=== PATIENT | female | born 1955 | race Caucasian/White ===

== ENCOUNTER 2019-02-08 08:23 | Day surgery (SDC) | payer MEDICARE, OTHER ==
[~2019-02-08] VITALS: Ht 162.6 cm; Wt 75.2 kg
[~2019-02-08 08:23] MED LIST: Alph-E-Mixed400 UNIT PO; B Complex #11 EACH PO; BIOTIN5000 MC1 SL; CARB100ER PO; CARB200; CARB200ER PO; CYCL10 PO; Cyclobenzaprine5 MG PO; DOXY100 PO; FAMO20 PO; HYDGUAL120 PO; LEVFLO500 PO; LEVSOD150 PO; LEVSOD50; LEVSOD75 PO; Mirapex1 MG PO; OXYC10ER PO; OXYC20ER; OXYC5; OXYC5 PO; PRAM.125 PO; PROBIOTIC 4X C1 EACH PO; SENN187 PO; SIME80CH PO; VENL75; VENL75ER PO; VOLTAREN100 GM TOP; Vitamin D2000 UNIT PO
[2019-02-08] MEDS ORDERED: PRED5 (09:00)
[2019-02-08] MEDS ORDERED: DICL25ER (09:00)
--- NOTE | 2019-02-08 09:05 | NUR ---
02/08/19 0905 Brenton Thomas 1ST IV ATTEMPT IN RIGHT HAND VEIN BLEW-CMT
== END 2019-02-08 11:10 | disposition home or self-care (01) ==
LOC: ORSCSDS 08:23
PROVIDERS: Internal Medicine Gastroenterology
PROC: 0DBP8ZX Excision of Rectum, Via Natural or Artificial Opening Endoscopic, Diagnostic (ICD-10-PCS; principal; 2019-02-08 09:30)
PROC: 3E0H8GC Introduction of Other Therapeutic Substance into Lower GI, Via Natural or Artificial Opening Endoscopic (ICD-10-PCS; principal; 2019-02-08 09:30)
PROC: 0DBM8ZX Excision of Descending Colon, Via Natural or Artificial Opening Endoscopic, Diagnostic (ICD-10-PCS; principal; 2019-02-08 09:30)
PROC: 0DBK8ZX Excision of Ascending Colon, Via Natural or Artificial Opening Endoscopic, Diagnostic (ICD-10-PCS; principal; 2019-02-08 09:30)
DX: Z12.11 Encounter for screening for malignant neoplasm of colon (principal); Z86.010 Personal history of colon polyps; Z80.0 Family history of malignant neoplasm of digestive organs; C18.2 Malignant neoplasm of ascending colon; D12.4 Benign neoplasm of descending colon; D12.8 Benign neoplasm of rectum; K63.5 Polyp of colon; K57.30 Diverticulosis of large intestine without perforation or abscess without bleeding; F17.210 Nicotine dependence, cigarettes, uncomplicated
CPT/HCPCS: 88305; J2704; J7120

== ENCOUNTER 2020-02-21 11:55 | Day surgery (SDC) | payer MEDICARE, OTHER ==
[~2020-02-21] VITALS: Ht 162.6 cm; Wt 72.4 kg
[~2020-02-21 11:55] MED LIST changes: +DICL25ER; +PRED5
--- NOTE | 2020-02-21 14:22 | NUR ---
02/21/20 1422 YOSELYN MENESES PATIENT TO STEP DOWN RECOVERY FOR EXTENDED RECOVERY. RECEIVED REPORT FROM [facility]. PATIENT UNDERWENT COLONOSCOPY AND IS NOW COMPLAINING OF ABDOMINAL PAIN POST PROCEDURE. PER DR. CORONEL PATIENT TO BE MONITORED FOR THIRTY MINUTES IN EXT RECOVERY. VSS. PATIENT REPORT IMPROVEMENT UPON ARRIVAL TO STEP DOWN. AT BEDSIDE. TOLERATING ICE CHIPS AT THIS TIME. LEISA MONTENEGRO, ENGAGED IN DISCHARGE TEACHING WITH PATIENT.
== END 2020-02-21 14:52 | disposition home or self-care (01) ==
LOC: ORSCSDS 11:55
PROVIDERS: Internal Medicine Gastroenterology
PROC: 0DBM8ZX Excision of Descending Colon, Via Natural or Artificial Opening Endoscopic, Diagnostic (ICD-10-PCS; principal; 2020-02-21 13:15)
PROC: 0DBN8ZX Excision of Sigmoid Colon, Via Natural or Artificial Opening Endoscopic, Diagnostic (ICD-10-PCS; principal; 2020-02-21 13:15)
PROC: 0DBK8ZX Excision of Ascending Colon, Via Natural or Artificial Opening Endoscopic, Diagnostic (ICD-10-PCS; principal; 2020-02-21 13:15)
DX: Z85.038 Personal history of other malignant neoplasm of large intestine (principal); Z86.010 Personal history of colon polyps; Z80.0 Family history of malignant neoplasm of digestive organs; K63.5 Polyp of colon; F17.210 Nicotine dependence, cigarettes, uncomplicated; Z79.899 Other long term (current) drug therapy
CPT/HCPCS: 88305; J2704; J7120

== ENCOUNTER → 2020-10-18 | Outpatient (CLI) | payer MEDICARE, OTHER ==
[2020-10-18 16:38] LABS: BASOPHILS ABSOLUTE AUTO 0.08 K/mm3 (0.00-0.23); BASOPHILS PERCENT AUTO 1 % (0-2); EOSINOPHILS ABSOLUTE AUTO 0.25 K/mm3 (0.00-0.68); EOSINOPHILS PERCENT AUTO 3 % (0-6); Hematocrit 40.6 % (33.0-51.0); Hemoglobin 13.2 g/dL (11.5-16.0); IMMATURE GRAN ABSOLUTE AUTO 0.06 K/mm3 (0.00-0.10); IMMATURE GRAN PERCENT AUTO 1 % (0-1); LYMPHOCYTES ABSOLUTE AUTO 1.54 K/mm3 (0.84-5.20); LYMPHOCYTES PERCENT AUTO 21 % (21-46); MONOCYTES ABSOLUTE AUTO 0.66 K/mm3 (0.16-1.47); MONOCYTES PERCENT AUTO 9 % (4-13); Mean Corpuscular HGB 31.4 pg (26.0-34.0); Mean Corpuscular HGB Conc 32.5 g/dL (31.5-36.5); Mean Corpuscular Volume 96 fL (80-100); Mean Platelet Volume 9.7 fL (9.1-12.4); NEUTROPHILS ABSOLUTE AUTO 4.88 K/mm3 (1.96-9.15); NEUTROPHILS PERCENT AUTO 65 % (41-73); Platelet Count 294 K/mm3 (150-400); RDW Coefficient Variation 13.1 % (11.7-14.2); Red Blood Cell Count 4.21 M/mm3 (3.80-5.20); White Blood Cell Count 7.47 K/mm3 (4.00-11.30)
[2020-10-18 16:52] LABS: Anion Gap 1 mmol/L (6-16); Blood Urea Nitrogen 12 mg/dL (8-24); Bun/Creatinine Ratio 20.2 (12.0-20.0); CO2, Blood 33 mmol/L (21-32); Carbamazepine 11.3 ug/mL (4.0-12.0); Chloride, Blood 98 mmol/L (98-108); Creatinine, Blood 0.59 mg/dL (0.40-1.00); Glomerular Filtration Rate >60 (60-); Glucose, Blood 99 mg/dL (70-99); Percent Saturation 20.7 % (15.0-50.0); Potassium, Blood 4.8 mmol/L (3.5-5.5); Sodium, Blood 132 mmol/L (136-145); Total Iron Binding Capacity 309 ug/dL (250-450)
[2020-10-18 16:57] LABS: Ferritin, Serum 125 ng/mL (8-252)
[2020-10-19 10:49] LABS: Iron Serum 63 ug/dL (50-170)
== END | disposition home or self-care (01) ==
LOC: PLD 15:12 → LAB SHORT 15:12
PROVIDERS: Registered Nurse
DX: G40.909 Epilepsy, unspecified, not intractable, without status epilepticus (principal); E61.1 Iron deficiency; E87.1 Hypo-osmolality and hyponatremia
CPT/HCPCS: 80048; 80156; 82728; 83540; 83550; 85025

== ENCOUNTER 2022-03-06 10:08 | Day surgery (SDC) | payer MEDICARE, OTHER ==
[~2022-03-06] VITALS: Ht 162.6 cm; Wt 75.7 kg
[2022-03-06] MEDS ORDERED: RANI150EL (10:51)
--- NOTE | 2022-03-06 11:12 | NUR ---
03/06/22 Zully2 JASON MORENO 2 ATTEMPTS AT IV. FIRST ATTEMPT AT IV BY MA IN L HAND IMFILTRATED. SECOND ATTEMPT BY MA IN L FOREARM SUCCESSFUL.
== END 2022-03-06 12:20 | disposition home or self-care (01) ==
LOC: ORSCSDS 10:08 → ORD 03-08 13:15 → ORSCMMR 03-08 13:15
PROVIDERS: Internal Medicine Gastroenterology
PROC: 0DBK8ZX Excision of Ascending Colon, Via Natural or Artificial Opening Endoscopic, Diagnostic (ICD-10-PCS; principal; 2022-03-06 11:15)
PROC: 0DBP8ZX Excision of Rectum, Via Natural or Artificial Opening Endoscopic, Diagnostic (ICD-10-PCS; principal; 2022-03-06 11:15)
DX: Z12.11 Encounter for screening for malignant neoplasm of colon (principal); Z85.038 Personal history of other malignant neoplasm of large intestine; D12.2 Benign neoplasm of ascending colon; K62.1 Rectal polyp; F17.210 Nicotine dependence, cigarettes, uncomplicated; Z79.899 Other long term (current) drug therapy
CPT/HCPCS: 88305; J2704; J7120

== ENCOUNTER 2022-08-01 10:07 | Day surgery (SDC) | payer MEDICARE, OTHER ==
[~2022-08-01] VITALS: Ht 162.6 cm; Wt 75.3 kg
[~2022-08-01 10:07] MED LIST changes: +RANI150EL
[2022-08-01] MEDS ORDERED: OXYB5 PO (10:44)
== END 2022-08-01 12:10 | disposition home or self-care (01) ==
LOC: ORSCSDS 10:07
PROVIDERS: Ophthalmology
PROC: 08RJ3JZ Replacement of Right Lens with Synthetic Substitute, Percutaneous Approach (ICD-10-PCS; principal; 2022-08-01 11:30)
DX: H25.11 Age-related nuclear cataract, right eye (principal); M79.7 Fibromyalgia; G40.909 Epilepsy, unspecified, not intractable, without status epilepticus; E07.9 Disorder of thyroid, unspecified; Z79.899 Other long term (current) drug therapy
CPT/HCPCS: J2001; J2250; J3010; J3301; V2632

== ENCOUNTER 2022-08-08 10:13 | Day surgery (SDC) | payer MEDICARE, OTHER ==
[~2022-08-08] VITALS: Ht 162.6 cm; Wt 75.3 kg
[~2022-08-08 10:13] MED LIST changes: +OXYB5 PO
== END 2022-08-08 12:03 | disposition home or self-care (01) ==
LOC: ORSCSDS 10:13
PROVIDERS: Ophthalmology
PROC: 08DK3ZZ Extraction of Left Lens, Percutaneous Approach (ICD-10-PCS; principal; 2022-08-08 11:30)
DX: H25.12 Age-related nuclear cataract, left eye (principal); Z96.1 Presence of intraocular lens; R56.9 Unspecified convulsions; F17.210 Nicotine dependence, cigarettes, uncomplicated; Z79.899 Other long term (current) drug therapy
CPT/HCPCS: J2001; J2250; J3010; J3301; J7040; V2632

== ENCOUNTER 2023-07-11 15:22 | Inpatient (IN) | payer MEDICARE, OTHER ==
[~2023-07-11] VITALS: Ht 162.6 cm; Wt 87.0 kg
[~2023-07-11 15:22] MED LIST changes: -OXYC5
[2023-07-11 16:10] LABS: BASOPHILS ABSOLUTE AUTO 0.08 K/mm3 (0.00-0.23); BASOPHILS PERCENT AUTO 1 % (0-2); EOSINOPHILS ABSOLUTE AUTO 0.05 K/mm3 (0.00-0.68); EOSINOPHILS PERCENT AUTO 1 % (0-6); Hematocrit 40.3 % (33.0-51.0); Hemoglobin 12.7 g/dL (11.5-16.0); IMMATURE GRAN ABSOLUTE AUTO 0.04 K/mm3 (0.00-0.10); IMMATURE GRAN PERCENT AUTO 1 % (0-1); LYMPHOCYTES ABSOLUTE AUTO 0.82 K/mm3 (0.84-5.20); LYMPHOCYTES PERCENT AUTO 10 % (21-46); MONOCYTES ABSOLUTE AUTO 0.73 K/mm3 (0.16-1.47); MONOCYTES PERCENT AUTO 9 % (4-13); Mean Corpuscular HGB 30.2 pg (26.0-34.0); Mean Corpuscular HGB Conc 31.5 g/dL (31.5-36.5); Mean Corpuscular Volume 96 fL (80-100); Mean Platelet Volume 8.8 fL (9.1-12.4); NEUTROPHILS ABSOLUTE AUTO 6.17 K/mm3 (1.96-9.15); NEUTROPHILS PERCENT AUTO 78 % (41-73); Platelet Count 349 K/mm3 (150-400); RDW Coefficient Variation 14.3 % (11.7-14.2); RDW Standard Deviation 50.2 fL (35.1-46.3); Red Blood Cell Count 4.21 M/mm3 (3.80-5.20); White Blood Cell Count 7.89 K/mm3 (4.00-11.30)
[2023-07-11 16:39] LABS: Albumin, Blood 3.4 g/dL (3.4-5.0); Albumin/Globulin Ratio 0.7 (0.8-1.8); Bilirubin, Total 0.2 mg/dL (0.1-1.0); Bun/Creatinine Ratio 16.8 (12.0-20.0); Calcium, Blood 8.5 mg/dL (8.5-10.1); Creatinine, Blood 0.6 mg/dL (0.40-1.00); Globulin, Blood 4.7 g/dL (2.2-4.0); Potassium, Blood 4.1 mmol/L (3.5-5.5); Total Protein, Blood 8.1 g/dL (6.4-8.2)
[2023-07-11 16:48] LABS: Base Excess Venous 6.9 mmol/L; Bicarbonate Venous 28.5 mmol/L (24.0-30.0); PCO2 Venous 63.7 mmHg (38-42); pH Blood Venous 7.32 (7.34-7.37)
[2023-07-11 19:39] LABS: Base Excess Venous 5.9 mmol/L; Bicarbonate Venous 28.7 mmol/L (24.0-30.0); PCO2 Venous 53.1 mmHg (38-42); pH Blood Venous 7.38 (7.34-7.37)
[2023-07-11] MEDS ORDERED: FURO20 PO (20:26)
[2023-07-11] MEDS ORDERED: POTA10T PO (20:30)
[2023-07-11 20:55] VITALS: BP 141/82
--- NOTE | 2023-07-11 21:15 | NUR ---
ADMISSION REPORT RECEIVED FROM ER NURSE. PATIENT ARRIVES TO PCU 02. MOVED OVER TO PCU BED WITH ASSISTANCE OF STAFF. PATIENT ALERT, ANSWERING ALL QUESTIONS APPROPRIATELY. ON 2L NC, SPO2 LOW 90s. PATIENT HAS SIGNIFICANT SWELLING TO UPPER FACE AND AROUND EYES AND IN BILATERAL UPPER EXTREMITIES. STATES IT HAS BEEN HAPPENING x3-4 WEEKS. AUDIBLY WHEEZING NOTED. PATIENT CYANOTIC IN FACE AND AROUND MOUTH WHEN IN SUPINE POSITION, HOB AT >30 DEGREES AT ALL TIMES. BP STABLE, TELE READING SR 90s, DENIES CHEST PAIN. PUREWICK PLACED BY ER. AT BEDSIDE WITH PATIENT. PATIENT ORIENTED TO ROOM AND CALL LIGHT SYSTEM.
[2023-07-12] VITALS (7 sets, daily range): BP systolic 106–169; BP diastolic 59–84
[2023-07-12 04:03] LABS: Base Excess Venous 5.5 mmol/L; Bicarbonate Venous 27.9 mmol/L (24.0-30.0); PCO2 Venous 48.2 mmHg (38-42); pH Blood Venous 7.41 (7.34-7.37)
[2023-07-12 04:10] LABS: BASOPHILS ABSOLUTE AUTO 0.05 K/mm3 (0.00-0.23); BASOPHILS PERCENT AUTO 1 % (0-2); EOSINOPHILS ABSOLUTE AUTO 0.02 K/mm3 (0.00-0.68); EOSINOPHILS PERCENT AUTO 0 % (0-6); Hematocrit 38.2 % (33.0-51.0); IMMATURE GRAN ABSOLUTE AUTO 0.04 K/mm3 (0.00-0.10); IMMATURE GRAN PERCENT AUTO 0 % (0-1); LYMPHOCYTES ABSOLUTE AUTO 0.88 K/mm3 (0.84-5.20); LYMPHOCYTES PERCENT AUTO 10 % (21-46); MONOCYTES ABSOLUTE AUTO 0.57 K/mm3 (0.16-1.47); MONOCYTES PERCENT AUTO 6 % (4-13); Mean Corpuscular HGB 30.2 pg (26.0-34.0); Mean Corpuscular HGB Conc 31.4 g/dL (31.5-36.5); Mean Corpuscular Volume 96 fL (80-100); Mean Platelet Volume 8.8 fL (9.1-12.4); NEUTROPHILS ABSOLUTE AUTO 7.71 K/mm3 (1.96-9.15); NEUTROPHILS PERCENT AUTO 83 % (41-73); Platelet Count 325 K/mm3 (150-400); RDW Coefficient Variation 14.3 % (11.7-14.2); RDW Standard Deviation 50.6 fL (35.1-46.3); Red Blood Cell Count 3.98 M/mm3 (3.80-5.20); White Blood Cell Count 9.27 K/mm3 (4.00-11.30)
[2023-07-12 04:33] LABS: Albumin, Blood 3.2 g/dL (3.4-5.0); Albumin/Globulin Ratio 0.7 (0.8-1.8); Bilirubin, Total 0.2 mg/dL (0.1-1.0); Calcium, Blood 8.1 mg/dL (8.5-10.1); Creatinine, Blood 0.63 mg/dL (0.40-1.00); Globulin, Blood 4.9 g/dL (2.2-4.0); Magnesium, Blood 2.5 mg/dL (1.6-2.4); Potassium, Blood 4.6 mmol/L (3.5-5.5); Total Protein, Blood 8.1 g/dL (6.4-8.2)
--- NOTE | 2023-07-12 06:01 | NUR ---
SHIFT SUMMARY PATIENT ALERT AND ORIENTED, SLIGHTLY ANXIOUS ABOUT NEWS SHE RECIEVED OVERNIGHT, OTHERWISE ANSWERING QUESTIONS APPROPRIATELY. PATIENT CONTINUES TO BE SWOLLEN IN BILATERAL UPPER EXTREMITIES, FACIAL SWELLING IMPRIVING. BP STABLE, TELE READING SR 80-90s. PATIENT ALTERNATING BETWEEN 2L NC AND CPAP WITH SPO2 >90%. PUREWICK IN PLACE, MINIMAL DARK URINE OUT OVERNIGHT. PATIENT ASSITING WITH TURNS. NO OTHER CHANGES, WILL REPORT TO DAY SHIFT RN.
--- NOTE | 2023-07-12 11:20 | NUR ---
Spoke with Dr Rodrigues and discussed case. 67 year old female admitted to the hospital for R Pleural Effusion. Pt's medical history and comorbidities include: Lung Cancer, Breast Cancer, Large Cell Lymphoma, Colon Cancer, Seizure Disorder, Hypothyroidism, Chronic Back Pain, Arthritis, and COPD. Imagine highly suppicious of new malignancy. Pt resting in bed upon arrival. Pt's spouse JT at bedside. Offered therapeutic listening as Pt and spouse report not wanting to pursue treatment for her cancer. Pt states she does not want to delay the inevitable any longer. Engaged in therapeutic conversation regarding goals of care including considering comfor care and hospice. Educated on comfort care and hospice philosophy. After discussion Pt and spouse are agreeable to hospice. Pt's goal is to passs away at home and would like to hold off on comfort care until she can be D/C with hospice. Discussed hospice agencies to choose from. Spouse will consider options. Pt and spouse are agreeable to add low dose roxanol and low dose Ativan to assit with any discomfort during her hospital stay. KPS 30% Placed order for Roxanol 5mg SL every 2 hours as needed for pain or airhunger and Ativan 0.5mg PO every 4 hours as needed for anxiety per V/O from Dr Rodrigues. Palliative Care will remain available
--- NOTE | 2023-07-12 17:47 | NUR ---
END OF SHIFT PT A&O X4. VSS. SPO2 > 92% ON 3L NC. MONITOR SHOWING NSR, HR 80s-90s. PT W/ SWELLING TO FACE & BUE W/ L MORE SWOLLEN THAN R. PT REPORTING SWELLING PRESENT FOR A FEW MONTHS NOW. L HAND SWOLLEN & WEEPING. PT WEAK, BUT ABLE TO GET UP TO CHAIR W/ 1 PERSON ASSIST. PT REPORTS BEING MORE COMFORTABLE IN RECLINER CHAIR. MD TO BEDSIDE THIS AM. PT & PT SPOUSE VERY RECEPTIVE TO DOCTOR UPDATE ON PT CONDITION & OPTIONS FOR CARE REGARDING PT CANCER HX & CT FINDINGS. PT & PT SPOUSE OPTING NOT TO PURSUE FURTHER TESTS/TREATMENT. PT SPOUSE TEARFUL, STATING WILL HONOR ANY WISH OF PT. PT STATING "I JUST WANT TO LIVE TO MY BIRTHDAY, WHICH IS TOMORROW. I WANT TO MAKE IT TO 70." PT STATING DESIRE TO GO HOME AND "GET AFFAIRS IN ORDER." PT STATING, "SHE WASN'T SUPPOSED TO MAKE IT TO 60 EVEN." PT & PT SPOUSE VERY PLEASANT, MAKING LOVING & SUPPORTIVE REMARKS TO EACH OTHER. PALLIATIVE CARE CONTINUING TO FOLLOW W/ PT. PT DENYING PAIN/DISCOMFORT AT THIS TIME.
[2023-07-13 03:23] LABS: Source, Urine Fem Cath
[2023-07-13 03:26] LABS: Bilirubin, Urine Neg (Neg); Blood, Urine Neg (Neg); Glucose Qualitative, Urine Neg (Neg); Ketones, Urine Neg (Neg); Leukocyte Esterase, Urine Neg (Neg); Nitrite, Urine Neg (Neg); Protein, Urine 1+ (Neg); Urobilinogen, Urine NORM (Normal)
[2023-07-13 03:44] LABS: Appearance, Urine Clear (Clear); Color, Urine Yellow (P-Yellow)
[2023-07-13 04:56] VITALS: BP 136/65
--- NOTE | 2023-07-13 05:59 | NUR ---
SHIFT SUMMARY PATIENT ALERT AND ORIENTED, ABLE TO MAKE NEEDS KNOWN. BP STABLE, TELE READING SR 90s DURING THE NIGHT. ON 2-3L NC FOR COMFORT WITH SPO2 >90%. PATIENT CONTINUES TO BE SWOLLEN IN UPPER EXTREMITIES. PATIENT ABLE TO REST COMFORTABLY DURING THE NIGHT, MEDICATED PER EMAR FOR BACK PAIN. PUREWICK IN PLACE, ADEQUATE OUTPUT DURING THE NIGHT. NO OTHER CHANGES, WILL REPORT TO DAY SHIFT RN.
[2023-07-13 08:11] VITALS: BP 107/61
[2023-07-13 08:52] LABS: International Normalized Ratio 0.98; Prothrombin Time Results 10.3 Sec (9.7-11.5)
--- NOTE | 2023-07-13 10:20 | NUR ---
Spoke with Dr Rodrigues and discussed case. Pt resting in bed and spouse at bedside. Offered therapeutic listening as Pt and spouse report speaking with Dr Luna yesterday. Pt is agreeable on waiting for any decision towards hospice until results of cytology are back and speaking with Dr Luna regarding any treatments options. Discused home health and Palliative Care program. Pt and spouse are agreeable with this option. Pt is also requesting a hospital bed. Continued supportive visit. Palliative Care will remain available
--- NOTE | 2023-07-13 11:38 | NUR ---
F/U visit. Pt agreeable to complete POLST form. Educated on choices and answered questions. Assisted with completing POLST. Will obtain copy of POLST upon hospitalist signature and send to medical records. Palliative Care will remain available
[2023-07-13 12:44] VITALS: BP 111/62
[2023-07-13 16:19] VITALS: BP 124/71
--- NOTE | 2023-07-13 17:07 | NUR ---
SHIFT SUMMARY PT IS ALERT AND ORIENTED X 4, SHE IS ABLE TO MAKE HER NEEDS KNOWN AND CALLS APPROPRIATELY. VSS, SPO2 MAINTAINED >95% VIA 2-3L NC. PT DENIES FEELINGS OF CHEST PAIN/PRESSURE, SHE REPORTED FEELING SOB W/ EXERTION. SHE DENIED FEELINGS OF NAUSEA/VOMITTING, PAIN REPORTED IN BACK, PLEASE SEE EMAR FOR PAIN MANAGEMENT. PT ENCOURAGED TO SIT UP IN CHAIR BUT SHE DECLINED REPORTING ABILITY TO FIND MORE COMFORT IN BED. THE PLAN FOR THE DAY WAS FOR PT TO RECIEVE THORACENTISIS PER ORDERS BUT DUE TO STAFFING ISSUES, THORA IS NOW SCHEDULED FOR TOMORROW. PT AND HER EXPRESSED CONCERNS/DESIRE FOR PT TO BE DISCHARGED TOMORROW, W/ PLANS TO GO HOME ON HOSPICE. PW DEVICE IS IN PLACE FOR PT TO VOID. EDEMA NOTED IN BUE W/ WHEEPING IN LUE, PILLOWS PLACED TO REDUCE SWELLING. PT'S HAS BEEN AT BEDSIDE DURING SHIFT. CALL LIGHT IS W/IN REACH.
[2023-07-13 20:22] VITALS: BP 126/66
--- NOTE | 2023-07-13 21:17 | NUR ---
ASSUMPTION OF CARE THIS RN ASSUMED CARE AT APPROX 1915. PATIENT IS ALERT AND ORIENTED X4, PLEASANT. COOPERATIVE WITH CARE AND ABLE TO MAKE NEEDS KNOWN NEEDED. VSS. TELEMETRY SHOWING SINUS TACH 90's. BP STABLE. DENIES CHEST PAIN OR PRESSURE. REPORTS INCREASED SHORTNESS OF BREATH WITH EXERTION, MILD SHORTNESS OF BREATH AT REST. ON 3L VIA NASAL CANNULA, SATS >90%. PLAN FOR THORACENTESIS TOMORROW, 07/14/23. INCONTINENT. PUREWICK IN PLACE, DRAINING YELLOW URINE TO SUCTION. ATTENDS IN PLACE, CHANGING PRN TO KEEP C/D/I. REPORTS 9/10 BACK PAIN, MANAGING PER EMAR WITH REPORTED RELIEF. CALL LIGHT IN REACH.
[2023-07-13 23:21] VITALS: BP 120/67
[2023-07-14 05:11] VITALS: BP 123/68
--- NOTE | 2023-07-14 05:26 | NUR ---
SHIFT SUMMARY NO ACUTE CHANGES SINCE PREVIOUS ASSUMPTION OF CARE NOTE. PATIENT SLEPT THROUGHOUT NIGHT, EASILY AROUSABLE TO VERBAL STIMULI. REMAINS ALERT AND ORIENTED X4. VS REMAIN STABLE. TELEMETRY REMAINS SINUS 80's. BP STABLE. REMAINS ON 3L VIA NASAL CANNULA, SATS >90%. PUREWICK IN PLACE, DRAINING YELLOW URINE TO SUCTION. ATTENDS IN PLACE. NO BM THIS SHIFT. PAIN MANAGED PER EMAR. CALL LIGHT IN REACH. WILL REPORT TO ONCOMING RN.
--- NOTE | 2023-07-14 08:00 | NUR ---
INITIAL ASSESSMENT: Patient is awake sitting up in bed watching TV. She is alert and oriented x4. She reports 6/10 lower back pain, she is medicated with her dose of Oxycodone. HRR, ST in the low 100s. LS DIM with a rub and slightly coarse, biox is mid to high 90s on 4L via NC. BT+. She has pitting eded to BUE and BLE. VSS. She is planned to have her thoracentesis this ama t 0930, Lovenox was held. She denies other needs at this time. Call light in reach.
[2023-07-14 10:50] LABS: Automated BF RBC Count 0.003 M/mm3 (0-0); Automated BF WBC Count 0.693 K/mm3 (0-999)
[2023-07-14 10:56] LABS: Body Fluid WBC Count 693 /mm3 (0-999); RBC Count, Body Fluid 3000 /mm3 (0-0)
[2023-07-14 11:14] LABS: Albumin, Body Fluid 2.5 g/dL; Lactate Dehydrogenase, Body Fl 151 U/L; Protein, Body Fluid 4.2 g/dL
--- NOTE | 2023-07-14 11:25 | NUR ---
Update: Patient returned from her Thoracentesis, 1L removed per gi tech. Patient was able to ambulate back to bed with FWW. RT to room for home Oxygen eval, patient will need 4L via NC. I talked with the reguarding the discharge plan. VSS. Patient denies needs at this time.
[2023-07-14 11:35] VITALS: BP 137/64
[2023-07-14 11:59] LABS: Total Cell Count, Body Fluid 100
[2023-07-14 12:00] LABS: Appearance, Body Fluid Hazy (Clear); Color, Body Fluid Yellow (None-Yellow)
[2023-07-14] MEDS ORDERED: Acetaminophen650 M1 PO (12:54)
[2023-07-14] MEDS ORDERED: VISBIOME 112.51 EACH PO (12:55)
[2023-07-14] MEDS ORDERED: DECADRON4 M1 PO (12:56)
[2023-07-14] MEDS ORDERED: SENN187 PO (12:57)
[2023-07-14 14:21] VITALS: BP 142/74
--- NOTE | 2023-07-14 16:20 | NUR ---
Discharge: Patient and verbalize understanding of discharge instructions. Special attention paid to the patient not smoking while on her oxygen due to fire risk. Patient to home via WC with her SANDRA.
== END 2023-07-14 16:22 | disposition home health service (06) | DRG 180 ==
LOC: ER 15:22 → PCU 17:27
PROVIDERS: Emergency Medicine; Internal Medicine; Student in an Organized Health Care Education/Training Program; ADMIT Student in an Organized Health Care Education/Training Program
PROC: 0W993ZZ Drainage of Right Pleural Cavity, Percutaneous Approach (ICD-10-PCS; principal; 2023-07-14)
DX: C78.1 Secondary malignant neoplasm of mediastinum (principal); J18.9 Pneumonia, unspecified organism; J98.59 Other diseases of mediastinum, not elsewhere classified; J96.01 Acute respiratory failure with hypoxia; J96.02 Acute respiratory failure with hypercapnia; C34.01 Malignant neoplasm of right main bronchus; E87.1 Hypo-osmolality and hyponatremia; J44.0 Chronic obstructive pulmonary disease with (acute) lower respiratory infection; I82.210 Acute embolism and thrombosis of superior vena cava; J91.0 Malignant pleural effusion; Z66 Do not resuscitate; Z51.5 Encounter for palliative care; C33 Malignant neoplasm of trachea; G40.909 Epilepsy, unspecified, not intractable, without status epilepticus; M19.90 Unspecified osteoarthritis, unspecified site; E78.5 Hyperlipidemia, unspecified; F10.90 Alcohol use, unspecified, uncomplicated; E03.9 Hypothyroidism, unspecified; F17.210 Nicotine dependence, cigarettes, uncomplicated; Z98.1 Arthrodesis status; Z98.890 Other specified postprocedural states; Z90.11 Acquired absence of right breast and nipple; Z88.8 Allergy status to other drugs, medicaments and biological substances; Z88.0 Allergy status to penicillin; Z79.890 Hormone replacement therapy; Z79.891 Long term (current) use of opiate analgesic; Z79.899 Other long term (current) drug therapy; Z85.038 Personal history of other malignant neoplasm of large intestine
CPT/HCPCS: 32555; 36415; 71045; 71260; 74177; 76604; 80053; 82042; 82803; 83615; 83735; 83880; 84145; 84157; 84439; 84443; 84484; 85025; 85610; 85730; 89051; 93005; 93010; 94640; 94660; 94664; 94761; 94762; 99285-25; A9270; J1650; J1940; J1956; J2930; J7050; Q9967